=== PATIENT | male | born 1985 | race Caucasian/White ===

== ENCOUNTER 2021-03-02 16:40 | Emergency (ER) | payer OTHER ==
[~2021-03-02] VITALS: Ht 190.5 cm; Wt 102.9 kg
[2021-03-02 16:42] VITALS: BP 157/97
[2021-03-02 17:39] LABS: BASO % 0.4 % (0.0-1.0); EOS % 0.2 % (0.0-3.0); HEMATOCRIT 47.4 % (42.0-52.0); HEMOGLOBIN 15.4 g/dl (13.5-17.5); LYMPH # 0.8 10^3/uL (1.5-5.0); LYMPH % 8.6 % (24.0-44.0); MEAN CORPUSCULAR HEMOGLOBIN 28.9 pg (27.0-33.0); MEAN CORPUSCULAR HGB CONC 32.5 g/dl (32.0-36.5); MEAN CORPUSCULAR VOLUME 89.1 fl (80.0-96.0); MONO # 0.5 10^3/uL (0.0-0.8); MONO % 5.4 % (2.0-8.0); NEUTROPHILS # 8.3 10^3/uL (1.5-8.5); PLATELET COUNT, AUTOMATED 225 10^3/uL (150-450); RED BLOOD COUNT 5.32 10^6/uL (4.30-6.10); WHITE BLOOD COUNT 9.8 10^3/uL (4.0-10.0)
[2021-03-02] MEDS ORDERED: ONDANSETRON 4MG/2ML VIAL IV ONE (17:40)
[2021-03-02] MEDS ORDERED: KETOROLAC 30 MG/ML 1ML VIAL IV ONE (17:40)
[2021-03-02 18:03] LABS: ALBUMIN 4.4 GM/DL (3.2-5.2); BILIRUBIN,DIRECT 0.2 MG/DL (0.0-0.2); BILIRUBIN,TOTAL 0.6 MG/DL (0.2-1.0); TOTAL PROTEIN 7.7 GM/DL (6.4-8.2)
--- NOTE | 2021-03-02 18:28 | REPVR ---
PROCEDURE INFORMATION: Exam: CT Abdomen And Pelvis Without Contrast Exam date and time: 03/02/2021 5:48 PM Age: 35 years old Clinical indication: Abdominal pain; Flank; Right; Additional info: Right flank pain TECHNIQUE: Imaging protocol: Computed tomography of the abdomen and pelvis without contrast. Radiation optimization: All CT scans at this facility use at least one of these dose optimization techniques: automated exposure control; mA and/or kV adjustment per patient size (includes targeted exams where dose is matched to clinical indication); or iterative reconstruction. COMPARISON: No relevant prior studies available. FINDINGS: Liver: Normal. No mass. Gallbladder and bile ducts: Normal. No calcified stones. No ductal dilation. Pancreas: Normal. No ductal dilation. Spleen: Normal. No splenomegaly. Adrenal glands: Normal. No mass. Kidneys and ureters: Punctate nonobstructive calculus right kidney. There is a 3.5 mm. obstructive ureteral calculus located distal right ureter mild resulting in a moderate proximal hydroureteronephrosis. There is minimal periureteral and perinephric stranding. No urinoma demonstrated. Stomach and bowel: Mural stratification in collapse demonstrated in the right transverse and left colon, findings likely related to nondistention. Findings can also be related to colitis in the appropriate clinical setting. Clinical correlation needed. Appendix: No evidence of appendicitis. Intraperitoneal space: Unremarkable. No free air. No significant fluid collection. Vasculature: Unremarkable. No abdominal aortic aneurysm. Lymph nodes: Unremarkable. No enlarged lymph nodes. Urinary bladder: Unremarkable as visualized. Reproductive: Unremarkable as visualized. Bones/joints: Left paracentral disc protrusion L5-S1 may impinge on the left S1 nerve root as it exits from the thecal sac. Soft tissues: Unremarkable. IMPRESSION: 1. Punctate nonobstructive calculus right kidney. 2. 3.5 mm obstructive distal right ureteral calculus as described above. 3. Mural stratification in collapse demonstrated in the right transverse and left colon, findings likely related to nondistention. Findings can also be related to colitis in the appropriate clinical setting. Clinical correlation needed. 4. Left paracentral disc protrusion L5-S1 may impinge on the left S1 nerve root as it exits from the thecal sac. Electronically signed by: Fransisco Boogie On 03/02/2021 18:27:32 PM
[2021-03-02] MEDS ORDERED: KETO10TAB PO (19:06)
[2021-03-02] MEDS ORDERED: FLOM0.4C39 PO (19:06)
[2021-03-02] MEDS ORDERED: TAMSULOSIN 0.4 MG CAP PO ONE (19:15)
[2021-03-02] MEDS ORDERED: KETOROLAC TROMETHAMINE 10 MG TAB PO ONE (19:20)
== END 2021-03-02 19:37 | disposition home or self-care (01) ==
LOC: M ED 16:40
DX: N20.2 Calculus of kidney with calculus of ureter (principal); M51.27 Other intervertebral disc displacement, lumbosacral region; Z88.1 Allergy status to other antibiotic agents; Z88.2 Allergy status to sulfonamides
CPT/HCPCS: 74176; 80047; 80076; 81001; 83690; 85025; 96374; 96375; 99284; J1885; J2405